=== PATIENT | male | born 1975 | race Caucasian/White ===

== ENCOUNTER 2020-11-05 12:53 | Outpatient (CLI) | payer OTHER ==
[~2020-11-05 12:53] MED LIST: LIDOCAINE 1%, 10ML ONE
[2020-11-05] MEDS ORDERED: GADOBUTROL 10 MMOL/10 ML VIAL ONE (14:10)
[2020-11-05] MEDS ORDERED: OMNIPAQUE 300 MG/ML, 10ML VIAL ONE (14:10)
== END 2020-11-05 23:59 | disposition home or self-care (01) ==
LOC: RAD 12:53
PROVIDERS: ATTEND Nurse Practitioner Family
DX: M25.512 Pain in left shoulder (principal); S46.012A Strain of muscle(s) and tendon(s) of the rotator cuff of left shoulder, initial encounter; X58.XXXA Exposure to other specified factors, initial encounter; Y93.89 Activity, other specified; Y92.89 Other specified places as the place of occurrence of the external cause; Y99.8 Other external cause status
CPT/HCPCS: 23350; 73040; 73221; A9585; J3490; Q9967